=== PATIENT | male | born 1945 | race Caucasian/White ===

== ENCOUNTER 2021-03-04 12:43 | Day surgery (SDC) | payer MEDICARE, BC ==
[~2021-03-04] VITALS: Ht 188 cm; Wt 85.3 kg
[2021-03-04] VITALS (7 sets, daily range): BP systolic 113–131; BP diastolic 69–83
[~2021-03-04 12:43] MED LIST: LIDOcaine 1% (10mg/ml)w/preservative injection 20ml MDV ONE; fentaNYL/PF 50MCG/1 ML 2ML syringe ONE; heparin 1,000unit/ml 10ml vial 10 ML ONE; iohexol 350MG/ML 100ml bottle IV ONE; midazolam 1 mg/ML 2ml injection ONE
[2021-03-04] MEDS ORDERED: APIX5TAB3 PO (13:06)
[2021-03-04] MEDS ORDERED: testosterone inj (13:07)
[2021-03-04] MEDS ORDERED: LEVO100T9 PO (13:07)
[2021-03-04] MEDS ORDERED: normal saline 1,000 ML IV SCH (13:15)
[2021-03-04] MEDS ORDERED: LIDOcaine/PRILOcaine 5gm cream TP ONE (13:15)
[2021-03-04] MEDS ORDERED: LORazepam 0.5 MG tablet PO PRN (13:15)
[2021-03-04] MEDS ORDERED: diphenhydrAMINE 25mg capsule PO PRN (13:15)
[2021-03-04] MEDS ORDERED: heparin 1,000unit/ml 10ml vial 10 ML ONE (13:27)
[2021-03-04] MEDS ORDERED: LIDOcaine 1% (10mg/ml)w/preservative injection 20ml MDV ONE (13:27)
[2021-03-04] MEDS ORDERED: fentaNYL/PF 50MCG/1 ML 2ML syringe ONE (13:27)
[2021-03-04] MEDS ORDERED: nitroGLYCERIN-Tridil 50MG/D5W 250 ML IV ONE (13:27)
[2021-03-04] MEDS ORDERED: verapamil 2.5 mg/ml inj IV ONE (13:27)
[2021-03-04] MEDS ORDERED: midazolam 1 mg/ML 2ml injection ONE (13:27)
[2021-03-04] MEDS ORDERED: iohexol 350MG/ML 100ml bottle IV ONE ×2 (13:27→14:11)
[2021-03-04 13:46] LABS: BASOPHILS # (AUTO) 0.1 X10'3 (0-0.2); BASOPHILS % (AUTO) 1.2 % (0-1); EOSINOPHILS # (AUTO) 0.2 X10'3 (0-0.9); EOSINOPHILS % (AUTO) 4.3 % (0-6); HEMATOCRIT 50.8 % (42.0-52.0); LYMPHOCYTES # (AUTO) 1.3 X10'3 (1.1-4.8); LYMPHOCYTES % (AUTO) 26.5 % (21-51); MEAN CORPUSCULAR HEMOGLOBIN 33.5 PG (27.0-31.0); MEAN CORPUSCULAR HGB CONC 33.4 g/dL (33.0-36.5); MEAN CORPUSCULAR VOLUME 100.4 FL (78-98); MEAN PLATELET VOLUME 9.9 FL (7.4-10.4); MONOCYTES # (AUTO) 0.6 X10'3 (0-0.9); MONOCYTES % (AUTO) 12.3 % (2-12); NEUTROPHILS # (AUTO) 2.7 X10'3 (1.8-7.7); NEUTROPHILS % (AUTO) 55.7 % (42-75); PLATELET COUNT 166 X10'3 (140-440); RED BLOOD COUNT 5.06 X10'6 (4.70-6.10); RED CELL DISTRIBUTION WIDTH 13.9 % (11.5-14.5); WHITE BLOOD COUNT 4.9 X10'3 (4.5-11.0)
[2021-03-04 13:53] LABS: ANION GAP 8 (8-16); BLOOD UREA NITROGEN 27 MG/DL (7-18); BUN/CREATININE RATIO 24.8 (5.4-32.0); CALCIUM 8.6 MG/DL (8.5-10.1); CHLORIDE 106 MMOL/L (99-107); CREATININE 1.09 MG/DL (0.60-1.10); GLUCOSE 99 MG/DL (70-104); POTASSIUM 4.5 MMOL/L (3.5-5.1); SODIUM 141 MMOL/L (135-145); TOTAL CARBON DIOXIDE 26.6 MMOL/L (24-32); eGFR 66 ML/MIN
[2021-03-04 13:58] LABS: PARTIAL THROMBOPLASTIN TIME 32 SECONDS (22-32)
== END 2021-03-04 16:40 | disposition home or self-care (01) ==
LOC: SSTAY O 12:43
PROVIDERS: ATTEND Internal Medicine Interventional Cardiology
DX: R94.39 Abnormal result of other cardiovascular function study (principal); I25.10 Atherosclerotic heart disease of native coronary artery without angina pectoris; I35.0 Nonrheumatic aortic (valve) stenosis; I48.91 Unspecified atrial fibrillation; F17.210 Nicotine dependence, cigarettes, uncomplicated; Z88.1 Allergy status to other antibiotic agents; Z79.01 Long term (current) use of anticoagulants; Z79.899 Other long term (current) drug therapy; Z86.73 Personal history of transient ischemic attack (TIA), and cerebral infarction without residual deficits
CPT/HCPCS: 36415; 80048; 85025; 85610; 85730; 93005; 93458; 99152; 99153; C1769; C1894; J1644; J2001; J2250; J3010; Q9967; A4620; A5120; J3490

== ENCOUNTER 2023-01-18 11:32 | Day surgery (SDC) | payer MEDICARE, BC ==
[2023-01-18] VITALS (18 sets, daily range): BP systolic 122–162; BP diastolic 71–106
[~2023-01-18] VITALS: Ht 180.3 cm; Wt 93.0 kg
[~2023-01-18 11:32] MED LIST changes: +APIX5TAB3 PO; +LEVO100T9 PO; -LIDOcaine 1% (10mg/ml)w/preservative injection 20ml MDV ONE; -fentaNYL/PF 50MCG/1 ML 2ML syringe ONE; -heparin 1,000unit/ml 10ml vial 10 ML ONE; -iohexol 350MG/ML 100ml bottle IV ONE; -midazolam 1 mg/ML 2ml injection ONE; +testosterone inj
[2023-01-18] MEDS ORDERED: normal saline 1000ml 1,000 ML IV PRN (12:00)
[2023-01-18] MEDS ORDERED: ALB0.5UD INH (12:01)
[2023-01-18] MEDS ORDERED: QUER500C PO (12:01)
[2023-01-18] MEDS ORDERED: LEVO100C4 PO (12:01)
[2023-01-18] MEDS ORDERED: FLO0.4C PO (12:01)
[2023-01-18] MEDS ORDERED: METO-384 PO (12:01)
[2023-01-18] MEDS ORDERED: DOCU100C40 PO (12:01)
[2023-01-18 12:52] LABS: BASOPHILS % (AUTO) 0.3 % (0-1); EOSINOPHILS # (AUTO) 0.2 X10'3 (0-0.9); HEMATOCRIT 43.2 % (42.0-52.0); HEMOGLOBIN 14.3 g/dl (14.0-17.9); LYMPHOCYTES # (AUTO) 0.9 X10'3 (1.1-4.8); LYMPHOCYTES % (AUTO) 28.5 % (21-51); MEAN CORPUSCULAR HEMOGLOBIN 32.3 PG (27.0-31.0); MEAN CORPUSCULAR HGB CONC 33.2 g/dL (33.0-36.5); MEAN CORPUSCULAR VOLUME 97.4 FL (78-98); MEAN PLATELET VOLUME 9.6 FL (7.4-10.4); MONOCYTES # (AUTO) 0.2 X10'3 (0-0.9); MONOCYTES % (AUTO) 5.7 % (2-12); NEUTROPHILS % (AUTO) 60.5 % (42-75); RED BLOOD COUNT 4.43 X10'6 (4.70-6.10); RED CELL DISTRIBUTION WIDTH 14.1 % (11.5-14.5); WHITE BLOOD COUNT 3.3 X10'3 (4.5-11.0)
[2023-01-18 12:56] LABS: PLATELET COUNT 41 X10'3 (140-440)
[2023-01-18 16:41] LABS: BASOPHILS % (AUTO) 0.2 % (0-1); EOSINOPHILS # (AUTO) 0.2 X10'3 (0-0.9); EOSINOPHILS % (AUTO) 4.5 % (0-6); HEMATOCRIT 40.8 % (42.0-52.0); HEMOGLOBIN 13.5 g/dl (14.0-17.9); LYMPHOCYTES # (AUTO) 0.9 X10'3 (1.1-4.8); LYMPHOCYTES % (AUTO) 27.8 % (21-51); MEAN CORPUSCULAR HEMOGLOBIN 32.2 PG (27.0-31.0); MEAN CORPUSCULAR HGB CONC 33.1 g/dL (33.0-36.5); MEAN CORPUSCULAR VOLUME 97.3 FL (78-98); MEAN PLATELET VOLUME 8.2 FL (7.4-10.4); MONOCYTES # (AUTO) 0.2 X10'3 (0-0.9); NEUTROPHILS # (AUTO) 2.1 X10'3 (1.8-7.7); NEUTROPHILS % (AUTO) 61.5 % (42-75); PLATELET COUNT 75 X10'3 (140-440); RED BLOOD COUNT 4.19 X10'6 (4.70-6.10); RED CELL DISTRIBUTION WIDTH 13.7 % (11.5-14.5); WHITE BLOOD COUNT 3.4 X10'3 (4.5-11.0)
[2023-01-18] MEDS ORDERED: midazolam 1 mg/ML 2ml injection ONE (17:03)
[2023-01-18] MEDS ORDERED: fentaNYL/PF 50MCG/1 ML 2ML syringe ONE (17:03)
[2023-01-18] MEDS ORDERED: gelatin sponge, absorbable (Gelfoam 12-7MM) sponge TP ONE (17:22)
[2023-01-18] MEDS ORDERED: LIDOcaine 1% (10mg/ml) 2ml vial ONE (17:40)
[2023-01-18] MEDS ORDERED: HYDROcodone/acetaminophen 5mg/325mg tablet PO PRN ×2 (18:05)
== END 2023-01-18 19:24 | disposition home or self-care (01) ==
LOC: SSTAY O 11:32
PROVIDERS: ATTEND Radiology Vascular & Interventional Radiology
DX: K76.89 Other specified diseases of liver (principal); C34.81 Malignant neoplasm of overlapping sites of right bronchus and lung; Z88.1 Allergy status to other antibiotic agents; Z79.899 Other long term (current) drug therapy
CPT/HCPCS: 36415; 47000; 76942; 85025; 85610; 86885; 86900; 86901; 99152; 99153; J2250; J3010; J3490; J7030; P9035; 36430; A4615